=== PATIENT | female | born 1950 | race Caucasian/White ===

== ENCOUNTER 2020-03-20 11:02 | Emergency (ER) | payer MEDICARE, BC ==
--- NOTE | 2020-03-20 11:57 | EDM.PDOC ---
ED HPI GENERAL MEDICAL PROBLEM - General Chief Complaint: General Stated Complaint: KIDNEY FUNCTIONS Time Seen by Provider: 03/20/20 11:30 Source of Information: Reports: Patient History Limitations: Reports: No Limitations - History of Present Illness INITIAL COMMENTS - FREE TEXT/NARRATIVE: 69-year-old female him for blood work to check renal function. She has recently gone undergone a round of chemotherapy for breast cancer treatment, and was scheduled for a breast biopsy tomorrow but her kidney function on her labs yesterday were elevated so they wanted it rechecked today. She does think that she has had decreased oral intake and decreased appetite, she also had a Persantine stress test yesterday. She does not have peripheral edema, she does not have shortness of breath or fever. Yesterday her creatinine was 3.2 and GFR was 18, these are the lowest levels during her course of treatment and the help desk engineer wanted them rechecked today. Onset: Unknown/Unsure Associated Symptoms: Reports: No Other Symptoms - Related Data Allergies Allergy/AdvReac Type Severity Reaction Status Date / Time acetaminophen Allergy Cannot Verified 03/20/20 11:20 [From Darvocet-N] Remember blue dye Allergy Cannot Verified 03/20/20 11:20 Remember bupivacaine [From Marcaine] Allergy Cannot Verified 03/20/20 11:20 Remember codeine Allergy Cannot Verified 03/20/20 11:20 Remember labetalol Allergy Cannot Verified 03/20/20 11:20 Remember levothyroxine sodium Allergy Cannot Verified 03/20/20 11:20 Remember meperidine [From Demerol] Allergy Cannot Verified 03/20/20 11:20 Remember methylprednisolone Allergy Cannot Verified 03/20/20 11:20 [From Depo-Medrol] Remember naproxen Allergy Cannot Verified 03/20/20 11:20 Remember niacin Allergy Cannot Verified 03/20/20 11:20 Remember prochlorperazine Allergy Cannot Verified 03/20/20 11:20 [From Compazine] Remember propoxyphene Allergy Cannot Verified 03/20/20 11:20 [From Darvocet-N] Remember red dye Allergy Cannot Verified 03/20/20 11:20 Remember rosuvastatin [From Crestor] Allergy Cannot Verified 03/20/20 11:20 Remember Trcyfto-Xda-Pig Reductase Allergy Cannot Verified 03/20/20 11:20 Inhibitor Remember Sulfa (Sulfonamide Allergy Cannot Verified 03/20/20 11:20 Antibiotics) Remember sulfamethoxazole Allergy Cannot Verified 03/20/20 11:20 [From Bactrim] Remember topiramate [From Topamax] Allergy Cannot Verified 03/20/20 11:20 Remember tramadol [From Ultram] Allergy Cannot Verified 03/20/20 11:20 Remember trimethoprim [From Bactrim] Allergy Cannot Verified 03/20/20 11:20 Remember environmental Allergy Cannot Uncoded 03/20/20 11:20 Remember Home Meds: Home Meds Carboxymethylcellulose Sodium [Refresh Tears] 15 ml EYEBOTH DAILY 12/30/19 [ History] Cholecalciferol (Vitamin D3) [Vitamin D] 1,000 mg PO DAILY 12/30/19 [History] Enoxaparin [Lovenox] 60 mg PO BID 12/30/19 [History] LORazepam [Lorazepam] 0.5 mg PO QID PRN 12/30/19 [History] Levothyroxine Sodium [Synthroid] 100 mcg PO DAILY 12/30/19 [History] Magnesium 400 mg PO DAILY 12/30/19 [History] Metoprolol Tartrate [Lopressor] 100 mg PO DAILY 12/30/19 [History] Multivitamin [Multivitamins] 1 mg PO DAILY 12/30/19 [History] Mv-Mn/Lutein/Zeax/Bilber/Hb277 [Macular Health Formula Capsule] 1 tab PO DAILY 12/30/19 [History] Omeprazole 40 mg PO DAILY 12/30/19 [History] Ondansetron [Ondansetron ODT] 8 mg PO Q6HR PRN 12/30/19 [History] amLODIPine [Norvasc] 5 mg PO BID 12/30/19 [History] hydrALAZINE [Apresoline] 25 mg PO TID 01/05/20 [History] Past Medical History Genitourinary History: Reports: Acute Renal Failure, Chronic Renal Insuffiency Endocrine/Metabolic History: Reports: Hypothyroidism Oncologic (Cancer) History: Reports: Breast, Thyroid - Past Surgical History Female Surgical History: Reports: Other (See Below) Other Female Surgeries/Procedures: stent kidney Social & Family History - Tobacco Use Smoking Status *Q: Never Smoker - Caffeine Use Caffeine Use: Reports: None - Recreational Drug Use Recreational Drug Use: No ED ROS GENERAL - Review of Systems Review Of Systems: See Below Constitutional: Reports: Malaise, Decreased Appetite. Denies: Fever, Chills HEENT: Reports: No Symptoms Respiratory: Denies: Shortness of Breath, Cough Cardiovascular: Denies: Chest Pain GI/Abdominal: Denies: Abdominal Pain, Diarrhea, Nausea, Vomiting Skin: Reports: No Symptoms Neurological: Reports: Weakness. Denies: Confusion, Dizziness, Headache Psychiatric: Reports: No Symptoms ED EXAM, GENERAL - Physical Exam Exam: See Below Exam Limited By: No Limitations General Appearance: Alert, No Apparent Distress Eye Exam: Bilateral Eye: Normal Inspection (Normal moisture, hydration, no jaundice) Head: Atraumatic Respiratory/Chest: No Respiratory Distress, Lungs Clear Cardiovascular: Regular Rate, Rhythm Extremities: Normal Inspection. No: Pedal Edema Psychiatric: Anxious Skin Exam: Warm, Dry Course - Vital Signs Last Recorded V/S: Last Vital Signs Temp 98.4 F 03/20/20 11:38 Pulse 85 03/20/20 11:38 Resp 16 03/20/20 11:38 BP 156/79 H 03/20/20 11:38 Pulse Ox 95 03/20/20 11:38 - Orders/Labs/Meds Labs: Laboratory Tests 03/20/20 03/20/20 Range/Units 12:04 12:04 WBC 7.8 (4.5-11.0) K/uL RBC 2.85 L (3.30-5.50) M/uL Hgb 10.5 L (12.0-15.0) g/dL Hct 30.2 L (36.0-48.0) % MCV 106 H (80-98) fL MCH 37 H (27-31) pg MCHC 35 (32-36) % Plt Count 356 (150-400) K/uL Neut % (Auto) 65 (36-66) % Lymph % (Auto) 12 L (24-44) % [place] % (Auto) 10 H (2-6) % Eos % (Auto) 10 H (2-4) % Baso % (Auto) 2 H (0-1) % Sodium 137 L (140-148) mmol/L Potassium 5.6 H (3.6-5.2) mmol/L Chloride 103 (100-108) mmol/L Carbon Dioxide 20 L (21-32) mmol/L Anion Gap 19.6 H (5.0-14.0) mmol/L BUN 70 H D (7-18) mg/dL Creatinine 3.0 H D (0.6-1.0) mg/dL Est Cr Clr Drug Dosing 14.43 mL/min Estimated GFR (MDRD) 15 L (>60) Glucose 262 H (74-106) mg/dL Calcium 7.6 L (8.5-10.1) mg/dL Meds: Medications Discontinued Medications Generic Name Dose Route Start Last Admin Trade Name Freq PRN Reason Stop Dose Admin Sodium Chloride 1,000 mls @ 1,000 mls/hr 03/20/20 12:00 03/20/20 12:03 Normal Saline IV 1,000 mls/hr ASDIRECTED [facility] Administration - Re-Assessments/Exams Free Text/Narrative Re-Assessment/Exam: 03/20/20 11:56 Patient will be hydrated with 1 L of normal saline, BMP and CBC will be checked and her doctors in [place] will be called with results. 03/20/20 12:52 Creatinine is 3.0, GFR 15, these are consistent with readings yesterday. After the 1 L of fluid was given the patient was discharged and can have her labs rechecked tomorrow, she does have an appointment with nephrology tomorrow. Copies of the labs are given to the patient. Departure - Departure Time of Disposition: 13:09 Disposition: Home, Self-Care 01 Clinical Impression: Renal failure Qualifiers: Renal failure chronicity: unspecified chronicity Qualified Code(s): N19 - Unspecified kidney failure - Discharge Information Instructions: Acute Kidney Injury, Adult Referrals: Warren Marcus MD [Primary Care Provider] - Forms: ED Department Discharge Care Plan Goals: Stay hydrated with fluids, and recheck tomorrow as planned. Take copies of labs with you to your recheck. Sepsis Event Note (ED) - Evaluation Sepsis Screening Result: No Definite Risk - Focused Exam Vital Signs: Vital Signs Temp Pulse Resp BP Pulse Ox 03/20/20 11:38 98.4 F 85 16 156/79 H 95 03/20/20 11:31 98.4 F 85 16 156/79 H 95
[2020-03-20] MEDS ORDERED: Sodium Chloride 0.9% 1,000 ML IV SCH (12:00)
== END 2020-03-20 13:09 | disposition home or self-care (01) ==
LOC: JP.ED 11:02
DX: N18.9 Chronic kidney disease, unspecified (principal); E03.9 Hypothyroidism, unspecified; Z88.6 Allergy status to analgesic agent; Z91.048 Other nonmedicinal substance allergy status; Z88.5 Allergy status to narcotic agent; Z88.8 Allergy status to other drugs, medicaments and biological substances; Z91.041 Radiographic dye allergy status; Z88.2 Allergy status to sulfonamides; Z79.899 Other long term (current) drug therapy
CPT/HCPCS: 36415; 80048; 85025; 99284; J7030; 99283

== ENCOUNTER 2025-02-22 13:11 | Emergency (ER) | payer MEDICARE, BC ==
[2025-02-22] MEDS: Sodium Chloride 0.9% 1,000 ML IV ONE (14:46)
[2025-02-22] MEDS: Ondansetron 4 MG/2 ML SDV IVPUSH ONE (14:52)
[2025-02-22 14:54] LABS: BASOPHILS ABSOLUTE AUTO 0.04 K/uL (0.00-0.10); BASOPHILS PERCENT AUTO 0.6 % (0.1-1.3); EOSINOPHILS ABSOLUTE AUTO 0.17 K/uL (0.00-0.40); EOSINOPHILS PERCENT AUTO 2.6 % (0.0-5.4); HEMATOCRIT 26.4 % (34.3-46.0); HEMOGLOBIN 8.7 g/dL (11.2-15.5); IMMATURE GRAN ABSOLUTE AUTO 0.04 K/uL (0.00-0.23); IMMATURE GRAN PERCENT AUTO 0.6 % (0.0-0.7); LYMPHOCYTES ABSOLUTE AUTO 0.51 K/uL (0.8-3.3); LYMPHOCYTES PERCENT AUTO 7.7 % (11.4-47.7); MONOCYTES PERCENT AUTO 7.6 % (3.3-12.6); NEUTROPHILS ABSOLUTE AUTO 5.36 K/uL (1.0-7.6); NEUTROPHILS PERCENT AUTO 80.9 % (40.0-78.1); PLATELET COUNT,PLT 349 K/uL (130-375); RED BLOOD CELL COUNT 2.64 M/uL (3.77-5.24); WHITE BLOOD CELL COUNT,WBC 6.6 K/uL (3.2-11.0)
[2025-02-22 14:55] LABS: BASE EXCESS VENOUS 5.2 mm/L; BICARBONATE,VENOUS 28.2 mmol/L; CARBOXYHEMOGLOBIN 2.6 % (0.0-1.6); METHEMOGLOBIN 1.2 %; O2 SATURATION VENOUS 93.2; OXYHEMOGLOBIN 89.7 %; PCO2 VENOUS 36.4 mm/Hg; PH,VENOUS 7.502 (7.350-7.450); PO2 VENOUS 61.2 mm/Hg; TOTAL HEMOGLOBIN 9.2 g/dL (12.0-16.0)
[2025-02-22 15:27] LABS: A/G RATIO 0.7 (1.2-2.2); ALANINE AMINOTRANSFERASE,ALT 15 U/L (12-78); ALBUMIN 3.1 g/dL (3.4-5.0); ALKALINE PHOSPHATASE 38 U/L (46-116); ASPARTATE AMNIOTRANSFERASE,AST 25 U/L (15-37); BILIRUBIN TOTAL 0.4 mg/dL (0.2-1.0); CALCIUM 9.1 mg/dL (8.5-10.1); CARBON DIOXIDE,CO2 28 mmol/L (21-32); CHLORIDE,CL 97 mmol/L (100-108); EST CRCL DRUG DOSING (CG) 10.31 mL/min; ESTIMATED GFR 11 mL/min (>60); GLUCOSE RANDOM 119 mg/dL (74-106); POTASSIUM,K 4.2 mmol/L (3.6-5.2); PRO B-TYPE NATRIUR PEPT,BNPPRO 11251 pg/mL (5-450); PROTEIN TOTAL,TP 7.3 g/dL (6.4-8.2); SODIUM,NA 137 mmol/L (140-148); TSH ULTRASENSITIVE 7.142 uIU/mL (0.358-3.740)
[2025-02-22 15:37] LABS: ANION GAP 16.2 mmol/L (5.0-14.0)
[2025-02-22 15:38] LABS: BLOOD UREA NITROGEN,BUN 92 mg/dL (7-18); CREATININE 3.9 mg/dL (0.6-1.0)
[2025-02-22 16:50] LABS: APPEARANCE,URINE CLEAR (CLEAR); BILIRUBIN,URINE NEGATIVE (NEGATIVE); COLOR,URINE YELLOW (YELLOW); GLUCOSE,URINE NEGATIVE (NEGATIVE); KETONES,URINE NEGATIVE (NEGATIVE); LEUKOCYTE ESTERASE,URINE NEGATIVE (NEGATIVE); NITRITE,URINE NEGATIVE (NEGATIVE); OCCULT BLOOD,URINE NEGATIVE (NEGATIVE); PH,URINE 6.5 (5.0-8.0); PROTEIN,URINE 100 mg/dL (NEGATIVE); UROBILINOGEN,URINE 0.2 EU/dL (0.2-1.0)
[2025-02-22 16:58] LABS: AMORPHOUS SEDIMENT,URINE NOT SEEN; BACTERIA,URINE NOT SEEN; EPITHELIAL CELLS,URINE RARE; MUCUS,URINE NOT SEEN; RBC,URINE 0-5 (0-5); WBC,URINE NOT SEEN (0-5)
== END 2025-02-22 16:48 ==
LOC: JP.ED 13:11
DX: E86.0 Dehydration (principal); R19.7 Diarrhea, unspecified; E03.9 Hypothyroidism, unspecified; N18.6 End stage renal disease; Z88.8 Allergy status to other drugs, medicaments and biological substances; Z88.5 Allergy status to narcotic agent; Z88.2 Allergy status to sulfonamides; Z79.899 Other long term (current) drug therapy; Z79.890 Hormone replacement therapy
CPT/HCPCS: 36415; 80053; 81001; 82803; 83605; 83690; 83735; 83880; 84443; 85025; 86140; 96361; 96374; 99284; J2405; J7030